=== PATIENT | female | born 1955 | race African-American/Black ===

== ENCOUNTER 2017-04-13 14:12 | Emergency (ER) | payer OTHER ==
[~2017-04-13] VITALS: Ht 165.1 cm; Wt 84.0 kg
[2017-04-13] MEDS ORDERED: METHOCARBAMOL 500MG TABLET PO ONE (15:00)
[2017-04-13] MEDS ORDERED: KETOROLAC 30MG/ML VIAL IM ONE (15:00)
[2017-04-13 15:37] LABS: CLARITY URINE CLOUDY (CLEAR); COLOR URINE YELLOW (YELLOW); GLUCOSE URINE NEGATIVE (NEGATIVE); KETONES URINE TRACE (NEGATIVE); LEUKOCYTE ESTERASE URINE NEGATIVE (NEGATIVE); NITRITE URINE NEGATIVE (NEGATIVE); OCCULT BLOOD URINE NEGATIVE (NEGATIVE); PROTEIN URINE NEGATIVE (NEGATIVE); SPECIFIC GRAVITY URINE 1.024 (1.005-1.030)
[2017-04-13 16:22] VITALS: BP 129/72
== END 2017-04-13 16:25 | disposition home or self-care (01) ==
LOC: ER 15:20
DX: S29.012A Strain of muscle and tendon of back wall of thorax, initial encounter (principal); K21.9 Gastro-esophageal reflux disease without esophagitis; I10 Essential (primary) hypertension; E78.00 Pure hypercholesterolemia, unspecified; F17.200 Nicotine dependence, unspecified, uncomplicated; M54.30 Sciatica, unspecified side; Z88.0 Allergy status to penicillin; X58.XXXA Exposure to other specified factors, initial encounter; Y93.89 Activity, other specified; Y92.89 Other specified places as the place of occurrence of the external cause; Y99.8 Other external cause status
CPT/HCPCS: 81001; 96372; 99283; J1885

== ENCOUNTER 2017-08-13 14:20 | Emergency (ER) | payer OTHER ==
[~2017-08-13] VITALS: Ht 165.1 cm; Wt 80.0 kg
[2017-08-13 14:56] VITALS: BP 117/70
== END 2017-08-13 19:22 | disposition home or self-care (01) ==
LOC: ER 17:42
DX: R05 Cough (principal); I10 Essential (primary) hypertension; M54.30 Sciatica, unspecified side; E78.00 Pure hypercholesterolemia, unspecified; K21.9 Gastro-esophageal reflux disease without esophagitis; M19.90 Unspecified osteoarthritis, unspecified site; F17.200 Nicotine dependence, unspecified, uncomplicated; Z88.0 Allergy status to penicillin; Z98.890 Other specified postprocedural states
CPT/HCPCS: 71045; 87804; 99285

== ENCOUNTER 2018-12-14 16:56 | Inpatient (IN) | payer OTHER ==
[~2018-12-14] VITALS: Ht 165.1 cm; Wt 83.9 kg
[2018-12-14 17:35] LABS: BASOPHILS % 0.9 % (0.0-2.0); EOSINOPHILS % 2.1 % (0.0-5.0); HEMATOCRIT. 44.8 % (36.0-48.0); HEMOGLOBIN. 15.4 g/dL (12.0-16.0); LYMPHOCYTES % 48.1 % (20.0-50.0); MEAN CORPUSCULAR HEMOGLOBIN 31.1 pg (28.0-32.0); MEAN CORPUSCULAR VOLUME 90.5 fL (81.0-99.0); MEAN PLATELET VOLUME 7.7 fl (7.4-10.4); NEUTROPHILS % 41.9 % (40.0-76.0); PLATELET 416 x1000/uL (130-400); RED BLOOD CELL COUNT 4.95 mill/uL (4.2-5.4); RED CELL DISTRIBUTION WIDTH 14.6 % (11.6-14.6)
[2018-12-14 17:41] LABS: CHLORIDE 106 mEq/L (98-107)
[2018-12-14 17:49] LABS: D-DIMER 0.29 mg/L FEU (<0.50); PARTIAL THROMBOPLASTIN TIME 27.8 sec (23.4-31.0); PROTHROMBIN TIME 10.1 sec (9.6-11.0)
[2018-12-14] MEDS ORDERED: MORPHINE SULFATE 4 MG/ML CPJ (NOT FOR IM USE) IV STA (19:48)
[2018-12-14] MEDS ORDERED: ONDANSETRON HCL 4MG/2ML INJ IV STA (19:48)
[2018-12-14 23:12] VITALS: BP 127/59
[2018-12-15] MEDS ORDERED: LISI1TAB9 MT (00:02)
[2018-12-15] MEDS ORDERED: IPRATROPIUM/ALBUTEROL 0.5-3(2.5)MG/3ML NEB INH PRN (00:30)
[2018-12-15] MEDS ORDERED: ACETAMINOPHEN 325MG TABLET PO PRN (00:30)
[2018-12-15] MEDS ORDERED: CLONIDINE 0.1MG TABLET PO PRN (00:30)
[2018-12-15] MEDS ORDERED: IBUPROFEN 800MG TABLET PO PRN (00:30)
[2018-12-15 00:41] VITALS: BP 127/59
[2018-12-15] MEDS: FAMOTIDINE 20MG TABLET PO SCH ×2 (02:50→09:00)
[2018-12-15 04:00] VITALS: BP 129/52
[2018-12-15] MEDS ORDERED: SODIUM CHLORIDE 0.9% INJ 3ML FLUSH IVF SCH (06:00)
[2018-12-15 06:38] LABS: BASOPHILS % 0.7 % (0.0-2.0); EOSINOPHILS % 2.7 % (0.0-5.0); HEMATOCRIT. 42.6 % (36.0-48.0); HEMOGLOBIN. 14.2 g/dL (12.0-16.0); LYMPHOCYTES % 42.6 % (20.0-50.0); MEAN CORPUSCULAR HEMOGLOBIN 30.7 pg (28.0-32.0); MEAN PLATELET VOLUME 7.5 fl (7.4-10.4); MONOCYTES % 7.7 % (2.0-8.0); NEUTROPHILS % 46.3 % (40.0-76.0); PLATELET 390 x1000/uL (130-400); RED BLOOD CELL COUNT 4.63 mill/uL (4.2-5.4); RED CELL DISTRIBUTION WIDTH 14.8 % (11.6-14.6)
[2018-12-15 06:44] LABS: CHLORIDE 106 mEq/L (98-107)
[2018-12-15 06:52] LABS: LDL CHOLESTEROL 114 mg/dL (5-100)
[2018-12-15 06:54] LABS: HDL CHOLESTEROL 31 mg/dL (40-59)
[2018-12-15] MEDS ORDERED: ASPIRIN 325MG EC TABLET PO SCH (09:00)
[2018-12-15] MEDS ORDERED: CARVEDILOL 6.25 MG TABLET PO SCH (09:00)
[2018-12-15] MEDS ORDERED: ENOXAPARIN 40MG/0.4ML SYR SUBCUT SCH (09:00)
[2018-12-15 12:00] VITALS: BP 135/47
[2018-12-15] MEDS ORDERED: ALEN70TA68 PO (12:41)
[2018-12-15] MEDS ORDERED: LISI-648 MT (12:41)
[2018-12-15] MEDS ORDERED: CHOL200077 PO (12:41)
[2018-12-15] MEDS ORDERED: OMEP20CA5 PO (12:41)
[2018-12-15 13:25] VITALS: BP 135/47
[2018-12-15] MEDS ORDERED: ATORVASTATIN CALCIUM 40MG TABLET PO SCH (21:00)
== END 2018-12-15 14:10 | disposition home or self-care (01) | DRG 243 ==
LOC: ER 16:56 → EDBEDREQTM 20:00 → EDBEDREQ 20:00 → 8WST 20:53 → EDBEDREQTM 20:54 → EDBEDREQ 20:54 → ENRESERV 21:52
PROVIDERS: ADMIT Ophthalmology; ATTEND Ophthalmology
DX: K21.9 Gastro-esophageal reflux disease without esophagitis (principal); E78.00 Pure hypercholesterolemia, unspecified; R07.89 Other chest pain; I10 Essential (primary) hypertension; M81.0 Age-related osteoporosis without current pathological fracture; M54.30 Sciatica, unspecified side; M19.90 Unspecified osteoarthritis, unspecified site; Z87.01 Personal history of pneumonia (recurrent); Z98.891 History of uterine scar from previous surgery; Z88.0 Allergy status to penicillin; Z72.0 Tobacco use; Z85.89 Personal history of malignant neoplasm of other organs and systems
CPT/HCPCS: 36415; 71045; 80048; 80061; 83036; 83880; 84443; 84484; 85379; 93005; 99285; J1650; J2270; J2405

== ENCOUNTER 2023-04-15 12:31 | Emergency (ER) | payer OTHER ==
[~2023-04-15] VITALS: Ht 165.1 cm; Wt 72.0 kg
[~2023-04-15 12:31] MED LIST: ALEN70TA79 PO; CHOL200077 PO; LISI-648 MT; OMEP20CA14 PO
[2023-04-15 12:37] VITALS: BP 154/65; PULSE 101; RESP 20; TEMP 98.4; O2SAT 100
== END 2023-04-15 16:54 | disposition left against medical advice (07) ==
LOC: ER 12:58
DX: J10.1 Influenza due to other identified influenza virus with other respiratory manifestations (principal); Z53.21 Procedure and treatment not carried out due to patient leaving prior to being seen by health care provider
CPT/HCPCS: 71045; 99281; 99283

== ENCOUNTER 2023-05-11 15:20 | Emergency (ER) | payer OTHER ==
[~2023-05-11] VITALS: Ht 167.6 cm; Wt 91.0 kg
[2023-05-11 16:17] VITALS: BP 197/77; PULSE 93; RESP 16; TEMP 98.3; O2SAT 99
== END 2023-05-11 22:06 | disposition left against medical advice (07) ==
LOC: ER 15:56
DX: Z53.21 Procedure and treatment not carried out due to patient leaving prior to being seen by health care provider (principal)
CPT/HCPCS: 99281

== ENCOUNTER 2024-08-22 18:21 | Emergency (ER) | payer MEDICARE, OTHER ==
[~2024-08-22] VITALS: Ht 167.6 cm; Wt 71.0 kg
[2024-08-22 18:29] VITALS: O2SAT 99
[2024-08-22] MEDS: LIDOCAINE HCL/PF 1% 10 MG/ML 5ML VIAL INFIL ONE (20:26)
[2024-08-22] MEDS: IBUPROFEN 600MG TABLET PO ONE (20:26)
[2024-08-22] MEDS: BACITRACIN ZINC OINT UDPKT TOP ONE ×2 (20:27)
[2024-08-22] MEDS ORDERED: IBUP-2029 MT (21:36)
[2024-08-22] MEDS ORDERED: T3 PO (21:36)
[2024-08-22] MEDS ORDERED: DOXY100T28 MT (21:36)
[2024-08-22 21:59] VITALS: BP 153/77; PULSE 90; RESP 18; TEMP 37.1; O2SAT 99
== END 2024-08-22 22:53 | disposition home or self-care (01) ==
LOC: ER 18:21
DX: E11.9 Type 2 diabetes mellitus without complications (principal); L02.412 Cutaneous abscess of left axilla; E78.00 Pure hypercholesterolemia, unspecified; I10 Essential (primary) hypertension; L72.3 Sebaceous cyst; M19.90 Unspecified osteoarthritis, unspecified site; Z79.899 Other long term (current) drug therapy; Z98.890 Other specified postprocedural states; Z88.0 Allergy status to penicillin
CPT/HCPCS: 99283; 10060; J2003

== ENCOUNTER 2024-08-24 12:18 | Emergency (ER) | payer MEDICARE, OTHER ==
[~2024-08-24] VITALS: Ht 166.4 cm; Wt 77.1 kg
[~2024-08-24 12:18] MED LIST changes: +DOXY100T28 MT; +IBUP-2029 MT; +T3 PO
[2024-08-24 12:31] VITALS: BP 140/63; TEMP 36.7; O2SAT 99
[2024-08-24 12:33] VITALS: PULSE 90; RESP 16; O2SAT 99
== END 2024-08-24 13:57 | disposition home or self-care (01) ==
LOC: ER 12:18
DX: Z48.00 Encounter for change or removal of nonsurgical wound dressing (principal); E11.9 Type 2 diabetes mellitus without complications; E78.00 Pure hypercholesterolemia, unspecified; I10 Essential (primary) hypertension; M19.90 Unspecified osteoarthritis, unspecified site; Z79.899 Other long term (current) drug therapy; Z88.0 Allergy status to penicillin
CPT/HCPCS: 99281

== ENCOUNTER 2024-09-01 11:21 | Emergency (ER) | payer MEDICARE, OTHER ==
[~2024-09-01] VITALS: Ht 167.6 cm; Wt 60.0 kg
[2024-09-01 11:22] VITALS: O2SAT 100
[2024-09-01 11:27] VITALS: BP 115/67; PULSE 96; RESP 16; TEMP 37.1; O2SAT 99
== END 2024-09-01 13:13 | disposition left against medical advice (07) ==
LOC: ER 11:21
DX: Z48.00 Encounter for change or removal of nonsurgical wound dressing (principal); Z53.21 Procedure and treatment not carried out due to patient leaving prior to being seen by health care provider

== ENCOUNTER 2025-03-29 15:12 | Emergency (ER) | payer MEDICARE, OTHER ==
[~2025-03-29] VITALS: Ht 165.1 cm; Wt 75.0 kg
[~2025-03-29 15:12] MED LIST changes: +IBUP-1455 MT; -IBUP-2029 MT
[2025-03-29 15:22] VITALS: O2SAT 99
[2025-03-29] MEDS ORDERED: NAPR-681 MT (17:12)
[2025-03-29 17:36] VITALS: BP 141/57; PULSE 87; RESP 18; TEMP 36.9; O2SAT 95
== END 2025-03-29 17:37 | disposition home or self-care (01) ==
LOC: ER 15:12
DX: S93.502A Unspecified sprain of left great toe, initial encounter (principal); M79.641 Pain in right hand; I10 Essential (primary) hypertension; E78.00 Pure hypercholesterolemia, unspecified; E11.9 Type 2 diabetes mellitus without complications; Z88.0 Allergy status to penicillin; Z79.899 Other long term (current) drug therapy; W01.0XXA Fall on same level from slipping, tripping and stumbling without subsequent striking against object, initial encounter; Y93.89 Activity, other specified; Y92.89 Other specified places as the place of occurrence of the external cause; Y99.8 Other external cause status
CPT/HCPCS: 73130; 73610; 73630; 99284